=== PATIENT | female | born 1980 | race Two or more races ===

== ENCOUNTER 2021-12-19 11:09 | Emergency (ER) | payer MEDICAID, OTHER ==
[~2021-12-19] VITALS: Ht 165.1 cm; Wt 97.0 kg
[2021-12-19] MEDS ORDERED: LABE100T4 PO (13:28)
[2021-12-19] MEDS ORDERED: AMOX-277 PO (13:28)
[2021-12-19] MEDS ORDERED: ACET-1158 PO (13:28)
[2021-12-19] MEDS ORDERED: BENZOCAINE (DENTAL) 20 % SPRAY 60ML MT ONE (13:30)
[2021-12-19] MEDS ORDERED: KETOROLAC TROMETH 60MG/2ML VIAL IM ONE (13:30)
[2021-12-19 14:05] VITALS: BP 152/92
== END 2021-12-19 14:07 | disposition home or self-care (01) ==
LOC: ER 11:09
DX: K04.7 Periapical abscess without sinus (principal); E11.9 Type 2 diabetes mellitus without complications; I10 Essential (primary) hypertension
CPT/HCPCS: 96372; 99283; J1885

== ENCOUNTER 2022-05-12 09:23 | Emergency (ER) | payer MEDICAID, OTHER ==
[~2022-05-12] VITALS: Ht 165.1 cm; Wt 95.0 kg
[~2022-05-12 09:23] MED LIST: ACET-1158 PO; AMOX-277 PO; LABE100T4 PO
[2022-05-12] MEDS ORDERED: DexAMETHasone SOD PHOS 10MG/1ML VIAL INJ IM ONE (12:00)
[2022-05-12] MEDS ORDERED: LABE100T4 PO (12:12)
[2022-05-12 12:20] VITALS: BP 138/74
== END 2022-05-12 12:50 | disposition home or self-care (01) ==
LOC: ER 09:23
DX: T78.3XXA Angioneurotic edema, initial encounter (principal); T44.5X5A Adverse effect of predominantly beta-adrenoreceptor agonists, initial encounter; I10 Essential (primary) hypertension; Z79.2 Long term (current) use of antibiotics; Z79.899 Other long term (current) drug therapy; Z91.012 Allergy to eggs; Z91.011 Allergy to milk products; Y92.89 Other specified places as the place of occurrence of the external cause
CPT/HCPCS: 96372; 99283; J1100